=== PATIENT | female | born 1935 | race American Indian/Alaskan Native ===

== ENCOUNTER 2019-04-26 20:14 | Emergency (ER) | payer MEDICARE ==
--- NOTE | 2019-04-26 20:32 | Emergency Department Report ---
Blank Doc - Documentation Documentation: This is a 84-year-old female that presents with slip and fall with headache. Denies any LOC. This initial assessment/diagnostic orders/clinical plan/treatment(s) is/are subject to change based on patient's health status, clinical progression and re- assessment by fellow clinical providers in the ED. Further treatment and workup at subsequent clinical providers discretion. Patient/guardians urged not to elope from the ED as their condition may be serious if not clinically assessed and managed. Initial orders include: 1- Patient sent to [facility] for further evaluation and treatment 2- CT head/cervical spine
--- NOTE | 2019-04-26 21:33 | Cat Scan Report ---
PROCEDURE: CT HEAD/BRAIN WO CON TECHNIQUE: Computerized tomography of the head was performed without contrast material. CT DOSE LENGTH PRODUCT: 928 mGycm HISTORY: head/neck pain s/p fall COMPARISONS: None . FINDINGS: No CT evidence of intracranial mass, hemorrhage, acute territorial infarction, or hydrocephalus. Intr acranial arteries are symmetric in density. There is right posterior parietal scalp soft tissue swell ing and laceration. No acute fracture is seen. Paranasal sinuses and mastoids are aerated. IMPRESSION: No CT evidence of acute intracranial abnormality . This document is electronically signed by Estee Jackson MD., April 26 2019 09:31:16 PM ET
--- NOTE | 2019-04-26 21:38 | Cat Scan Report ---
PROCEDURE: CT CERVICAL SPINE WO CON TECHNIQUE: Computerized tomography of the cervical spine was performed from the skull base to T1 wit hout contrast material. CT DOSE LENGTH PRODUCT: 310.5 mGycm HISTORY: head/neck pain s/p fall COMPARISONS: None . FINDINGS: No acute fracture or subluxation is seen. There are degenerative disc and facet arthritic changes. IMPRESSION: No acute fracture or subluxation is identified . This document is electronically signed by Estee Jackson MD., April 26 2019 09:35:52 PM ET
--- NOTE | 2019-04-26 22:29 | Emergency Department Report ---
ED Fall HPI - General Chief Complaint: Fall Stated Complaint: GROUND LEVEL FALL Time Seen by Provider: 04/26/19 20:30 Source: patient, EMS, old records reviewed Mode of arrival: Wheelchair Limitations: Altered Mental Status (chronic dementia) - History of Present Illness Initial Comments: 84-year-old female with a past medical history of dementia presents from review was after falling and striking the back of her head. She presents with a head laceration. No LOC reported. Patient denies any pain. She is at her baseline mental status. She is oriented to self only. - Related Data Allergies Allergy/AdvReac Type Severity Reaction Status Date / Time No Known Allergies Allergy Verified 04/26/19 20:22 ED Review of Systems ROS: Stated complaint: GROUND LEVEL FALL Other details as noted in HPI Comment: All other systems reviewed and negative ED Past Medical Hx - Past Medical History Previous Medical History?: Yes Additional medical history: dementia, - Surgical History Past Surgical History?: No - Social History Smoking Status: Never Smoker Substance Use Type: None ED Physical Exam - General Limitations: Other - Other Other exam information: General: No limitations, patient is alert in no acute distress Head exam: Patient has a area of dry blood to the right posterior occipital area however, she has a sewing wheezing we are unable to identify that with the blood was coming from. We had to remove all her tracks and unbraid her hair to identify the area of bleeding. Patient has a contused part of the skin of the right occipital area with 2 small 1 mm lacerations that are slowly oozing blood. Area was cleaned and Dermabond adhesive was applied to achieve hemostasis. Eyes exam: Normal appearance, pupils equal reactive to light, extraocular movements intact ENT: Moist mucous membrane, normal oropharynx Neck exam: Normal inspection, full range of motion, no meningismus nontender Respiratory exam: Clear to auscultation bilateral, no wheezes, rales, crackles Cardiovascular: Normal rate and rhythm, normal heart sounds Abdomen: Soft, nondistended, and nontender, with normal bowel sounds, no rebound, or guarding Extremity: Full range of motion normal inspection no deformity Back: Normal Inspection, full range of motion, no tenderness Neurologic: Alert, oriented x to self only, cranial nerves intact, no motor or sensory deficit Psychiatric: Pleasantly confused, cooperative, follows commands but obviously demented Skin: Warm, dry, intact ED Course Vital Signs 04/26/19 20:31 Temperature 97.4 F L Pulse Rate 83 Respiratory 18 Rate Blood Pressure 146/57 O2 Sat by Pulse 98 Oximetry ED Medical Decision Making - Radiology Data Radiology results: report reviewed PROCEDURE: CT CERVICAL SPINE WO CON TECHNIQUE: Computerized tomography of the cervical spine was performed from the skull base to T1 without contrast material. CT DOSE LENGTH PRODUCT: 310.5 mGycm HISTORY: head/neck pain s/p fall COMPARISONS: None . FINDINGS: No acute fracture or subluxation is seen. There are degenerative disc and facet arthritic changes. IMPRESSION: No acute fracture or subluxation is identified . PROCEDURE: CT HEAD/BRAIN WO CON TECHNIQUE: Computerized tomography of the head was performed without contrast material. CT DOSE LENGTH PRODUCT: 928 mGycm HISTORY: head/neck pain s/p fall COMPARISONS: None . FINDINGS: No CT evidence of intracranial mass, hemorrhage, acute territorial infarction, or hydrocephalus. Intracranial arteries are symmetric in density. There is right posterior parietal scalp soft tissue swelling and laceration. No acute fracture is seen. Paranasal sinuses and mastoids are aerated. IMPRESSION: No CT evidence of acute intracranial abnormality . - Medical Decision Making Patient had Dermabond repair of her small lacerations does pulse fall with head injury. CT head and cervical spine are unremarkable. Since tetanus status unknown tetanus booster was provided in the ED prior to discharge. - Differential Diagnosis ICH, fracture, contusion, laceration Critical Care Time: No Critical care attestation.: If time is entered above; I have spent that time in minutes in the direct care of this critically ill patient, excluding procedure time. ED Disposition Clinical Impression: Fall, Head injury, Scalp laceration, Dementia Disposition: [id number] TO HOME OR SELFCARE Is pt being admited?: No Does the pt Need Aspirin: No Condition: Stable Instructions: Fall Prevention for Older Adults (ED), Skin Adhesive Care (ED), Minor Head Injury (ED), Dementia (ED) Additional Instructions: Follow up with your doctor or the clinic/doctor provided. Return if symptoms worsen as indicated by your discharge instructions You did receive a tetanus shot today Referrals: SYDNI CARCAMO MD [Primary Care Provider] - 3-5 Days Time of Disposition: 23:14
[2019-04-26] MEDS ORDERED: BOOSTRIX IM ONE (22:58)
[2019-04-27 01:03] VITALS: BP 122/74
== END 2019-04-26 23:15 | disposition home or self-care (01) ==
LOC: ED 20:14
DX: S01.01XA Laceration without foreign body of scalp, initial encounter (principal); S09.90XA Unspecified injury of head, initial encounter; F03.90 Unspecified dementia, unspecified severity, without behavioral disturbance, psychotic disturbance, mood disturbance, and anxiety; W18.30XA Fall on same level, unspecified, initial encounter; Y93.89 Activity, other specified; Y92.89 Other specified places as the place of occurrence of the external cause; Y99.8 Other external cause status
CPT/HCPCS: 70450; 72125; 90471; 90715